=== PATIENT | male | born 1975 | race Caucasian/White ===

== ENCOUNTER → 2019-06-03 | Outpatient (CLI) | payer OTHER | LOC: M.MRI 05-24 08:56 | DX: S34.139A Unspecified injury to sacral spinal cord, initial encounter (principal); S34.105A Unspecified injury to L5 level of lumbar spinal cord, initial encounter; M47.817 Spondylosis without myelopathy or radiculopathy, lumbosacral region; M47.812 Spondylosis without myelopathy or radiculopathy, cervical region; M50.323 Other cervical disc degeneration at C6-C7 level; M48.02 Spinal stenosis, cervical region; M50.223 Other cervical disc displacement at C6-C7 level; V89.2XXA Person injured in unspecified motor-vehicle accident, traffic, initial encounter; Y93.89 Activity, other specified; Y92.89 Other specified places as the place of occurrence of the external cause; Y99.8 Other external cause status ==

== ENCOUNTER → 2019-06-10 | Outpatient (CLI) | payer OTHER ==
[~2019-06-10] MED LIST: AMITRIPTYLINE H10 M1 PO; IBUPROFEN 800800 M1 PO; LISINOPRIL10 MG PO; MEDROLDOSEPACK PO; MOBIC15 MG PO; NORCO 5-325 TA1 EAC1 PO; NORFLEX100 MG PO
== END ==
LOC: M.MRI 14:15
DX: G93.0 Cerebral cysts (principal)

== ENCOUNTER → 2019-06-16 | Outpatient (CLI) | payer OTHER ==
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
== END ==
LOC: M.PC 05:21
DX: M54.16 Radiculopathy, lumbar region (principal); M47.812 Spondylosis without myelopathy or radiculopathy, cervical region; I10 Essential (primary) hypertension; M79.18 Myalgia, other site; M48.02 Spinal stenosis, cervical region; Z79.899 Other long term (current) drug therapy

== ENCOUNTER → 2019-06-23 | Outpatient (CLI) | payer OTHER ==
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
== END | disposition home or self-care (01) ==
LOC: M.PC 05:12
DX: M51.37 Other intervertebral disc degeneration, lumbosacral region (principal); G89.29 Other chronic pain; M79.18 Myalgia, other site; M50.223 Other cervical disc displacement at C6-C7 level; M47.892 Other spondylosis, cervical region; M48.02 Spinal stenosis, cervical region; I10 Essential (primary) hypertension; Z88.8 Allergy status to other drugs, medicaments and biological substances; Z79.899 Other long term (current) drug therapy; Z79.891 Long term (current) use of opiate analgesic; Z98.890 Other specified postprocedural states

== ENCOUNTER → 2019-07-21 | Outpatient (CLI) | payer OTHER ==
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
== END | disposition home or self-care (01) ==
LOC: M.PC 05:31
DX: M47.22 Other spondylosis with radiculopathy, cervical region (principal); M79.18 Myalgia, other site; M48.02 Spinal stenosis, cervical region; M99.71 Connective tissue and disc stenosis of intervertebral foramina of cervical region; I10 Essential (primary) hypertension; Z79.899 Other long term (current) drug therapy; Z88.8 Allergy status to other drugs, medicaments and biological substances

== ENCOUNTER 2019-07-26 15:58 | Inpatient (IN) | payer OTHER ==
[~2019-07-26] VITALS: Ht 182.9 cm; Wt 127.0 kg
[2019-07-26 16:00] VITALS: BP 146/101
[2019-07-26 16:35] LABS: HEMOGLOBIN 15.5 gm/dL (14.0-18.0); MCHC 34.4 g/dL (28.0-37.0); MCV 78.4 fL (80.0-100.0); MPV 8.2 fl. (7.2-11.1); NUCLEATED RBCS 0 /100WBC; PLATELET COUNT* 228 thou/uL (150-400); RBC 5.74 mil/uL (4.50-6.00); RDW-CV 15.4 % (10.5-14.5); WBC 14.4 thou/uL (4.0-11.0)
[2019-07-26 16:41] LABS: CALCIUM 9.2 mg/dL (8.5-10.1); CREATININE 1.3 mg/dL (0.6-1.3); POTASSIUM 3.7 mmol/L (3.5-5.1)
[2019-07-26 16:42] LABS: URINE BILIRUBIN NEGATIVE (Negative); URINE BLOOD NEGATIVE (Negative); URINE CLARITY CLEAR; URINE COLOR YELLOW; URINE GLUCOSE-RANDOM NEGATIVE (Negative); URINE KETONES NEGATIVE (Negative); URINE LEUKOCYTES-REFLEX NEGATIVE (Negative); URINE NITRITE-REFLEX NEGATIVE (Negative); URINE PROTEIN TRACE (Negative); URINE SPECIFIC GRAVITY 1.025 (1.005-1.030); URINE UROBILINOGEN 0.2 E.U./dl (0.2-1.0)
[2019-07-26 16:46] LABS: ALBUMIN 3.7 g/dL (3.4-5.0); TOTAL BILIRUBIN 1.3 mg/dL (<0.1-1.0); TOTAL PROTEIN 7.4 g/dL (6.4-8.2)
[2019-07-26 17:00] LABS: INFLUENZA A ANTIGEN Negative (Negative); INFLUENZA B ANTIGEN Negative (Negative)
[2019-07-26 17:18] LABS: ABSOLUTE LYMPHOCYTES 0.4 thou/uL (0.8-5.3); ABSOLUTE MONOCYTES 1.7 thou/uL (0.0-1.2); ABSOLUTE NEUTROPHILS 12.2 thou/uL (1.6-8.1); PLATELET ESTIMATE ADEQUATE
[2019-07-26 19:19] VITALS: BP 115/80
[2019-07-27 05:02] LABS: HEMATOCRIT 40.8 % (42.0-52.0); HEMOGLOBIN 13.7 gm/dL (14.0-18.0); MCH 26.9 pg (26.0-34.0); MCHC 33.5 g/dL (28.0-37.0); MCV 80.3 fL (80.0-100.0); MPV 8.1 fl. (7.2-11.1); RBC 5.08 mil/uL (4.50-6.00); RDW-CV 15.3 % (10.5-14.5); WBC 12.5 thou/uL (4.0-11.0)
[2019-07-27 05:13] LABS: CALCIUM 8.3 mg/dL (8.5-10.1); CREATININE 1.3 mg/dL (0.6-1.3)
[2019-07-27 05:31] LABS: POTASSIUM 4.7 mmol/L (3.5-5.1)
[2019-07-27 07:47] VITALS: BP 133/84
[2019-07-27 09:25] VITALS: BP 133/84
--- NOTE | 2019-07-28 13:07 | PATH ---
[facility] [address] [place] [address] PATHOLOGY RPT PROCEDURE Name: HILARIO MOSQUERA Room: [address] [place] M.R.#: [id number] Admission: 07/26/19 Date of : 71 Discharge: 07/27/19 Report #: [id number] Path Case #: [id number] [facility] Accession Number: [id number] . 01 Material submitted: . appendix - APPENDIX . 01 Clinical history: . Acute appendicitis . 02 Diagnosis: Appendix: - Acute gangrenous appendicitis, periappendicitis and serositis. . (EDUIN:mml; 07/28/2019) QL 07/28/2019 1213 Local . 02 Electronically signed: . Danny Conner MD, Pathologist NPI- [id number] . 01 Gross description: . The specimen is received in formalin, labeled "Hilario Mosquera, appendix" and consists of a curved appendix measuring 10.6 in length and up to 1.2 in diameter with mesoappendix measuring 1.6 thick. The serosa is pink-de la cruz with extensive adhesions and focal hemorrhage at the proximal aspect. The margin is closed with a line of lorri and inked black. Sectioning reveals a hemorrhagic dilated lumen containing red brown material. Physician Gynecologist sections are submitted in A1-A3. (SDY; 07/27/2019) SYU/SYU 07/27/2019 [facility] . 02 Pathologist provided ICD-10: K35.80 . 02 CPT . 725119 Specimen Comment: A courtesy copy of this report has been sent to Specimen Comment: [phone], . Specimen Comment: Report sent to / DR EVANGELISTA Performed at: 01 [facility] [address] [facility] [address], [place], [place] [id number] MD Waldo Mcginnis MD Phone: [phone] Performed at: [address] [address] [address] [place] [id number] MD Danny Conner MD Phone: [phone]
[2019-08-18] MEDS ORDERED: NORCO 5-325 TA1 EAC1 PO (12:19)
[2019-08-18] MEDS ORDERED: MOBIC15 MG PO (12:19)
[2019-08-18] MEDS ORDERED: AMITRIPTYLINE H10 M1 PO ×2 (12:20→12:22)
[2019-08-26] MEDS ORDERED: AMITRIPTYLINE H10 M1 PO (11:51)
--- NOTE | 2019-08-30 13:34 | OP ---
[address] [address] OPERATIVE REPORT Name: HILARIO PRAKASH Room: [address] [place] .R.#: [id number] Admission: 07/26/19 Attend Phys: Mohan Queen DO Discharge: 07/27/19 Date of : 71 Report #: [id number] THIS REPORT FOR: //name// CC: Mohan Queen [facility] DICTATED BY: Sonny Cervantes DO DATE OF SERVICE: 07/26/2019 PREOPERATIVE DIAGNOSIS: Acute appendicitis. POSTOPERATIVE DIAGNOSIS: Acute appendicitis. SURGERY PERFORMED: Laparoscopic appendectomy. SURGEON: Mohan Queen DO PRINT PRODUCTION COORDINATOR: Sonny Cervantes DO, PGY-3. ANESTHESIA: General and local. ESTIMATED BLOOD LOSS: 20 mL. SPECIMEN REMOVED: Appendix. COMPLICATIONS: None. IMPLANTS: None. HISTORY OF PRESENT ILLNESS: The patient is a 44-year-old male presented to the Emergency Room with acute onset right lower quadrant pain, diagnosed with acute appendicitis. Discussed the need for laparoscopic appendectomy. Risks, benefits and alternatives were discussed at length and he agreed to proceed with surgery. DESCRIPTION OF PROCEDURE: Once consent was obtained, the patient was taken to the operating room and placed in the supine position. SCDs applied to bilateral lower extremities, safety belt placed across the patient's waist, antibiotics were given for surgical prophylaxis. General anesthesia was administered without any complication. The patient was then prepped and draped in the standard sterile fashion. Timeout was performed to confirm the patient and procedure, 11-blade scalpel was used to make an incision just above the umbilicus in a vertical fashion. Electrocautery was used for hemostasis and to dissect down to the level of fascia. Once the fascia was encountered, it was [facility] [address] [place] [address] OPERATIVE REPORT Name: HILARIO PRAKASH Room: [address] [place] [facility].#: [id number] Admission: 07/26/19 Attend Phys: Mohan Queen DO Discharge: 07/27/19 Date of : 71 Report #: [id number] scored with electrocautery, grasped between 2 Kochers and elevated. Hemostat was used to bluntly enter the peritoneum. Two stitches of 0 Vicryl placed on either side of the fascia. A 5 mm Jessica trocar was inserted in the abdomen. Insufflation was initiated. Camera was inserted and intraabdominal contents were inspected. There did appear to be localized peritonitis in the right lower quadrant. The cecum was identified; however, the appendix could not be easily seen. The patient was placed in Trendelenburg and rotated towards the left. A second 5 mm trocar was placed just above the suprapubic bone. Laparoscopic [place] was used to mobilize this small bowel laterally and out of the way of the operative field. The appendix could barely be visible from this point. A second 12-mm trocar was placed in the left lower quadrant of the abdomen. Two laparoscopic Babcocks were used to mobilize the colon. The appendix was identified. It was very inflamed and dilated, very large, indicating acute appendicitis with localized peritonitis. There was some serous fluid around this area. No evidence of pus or perforation. The appendix itself was mobilized off the abdominal wall with blunt dissection. Once the appendix was completely mobilized, it was grasped at the base. Harmonic scalpel was used to create a window at the base of the appendix. A 45 purple load staple was fired across the base of the appendix without any incidents. Once the base of the appendix was stapled, Harmonic scalpel was used to go across the mesoappendix. All bleeding was controlled with the Harmonic scalpel. The appendix was placed in laparoscopic EndoCatch bag. Staple lines were inspected carefully. There was no evidence of bleeding from the staple line. The mesoappendix did have a little bit of bleeding. This was cauterized with the Harmonic scalpel. Once the right lower quadrant was irrigated copiously, all fluid was suctioned out. The patient was leveled out. Again, the staple line and the right lower quadrant were inspected. There was no evidence of bleeding. Insufflation was let down. All trocars were removed under direct visualization. The Tito-Cipriano was used to close the left lower quadrant 12-mm trocar. A 3-0 Vicryl was used to close the supraumbilical fascia, 4-0 Monocryl was used to close all other incisions. The appendix was removed from the abdomen. It was again very inflamed, very dilated, indicating acute appendicitis. This patient was awoken from general anesthesia and transferred to PACU in stable condition. All counts were correct at the end of the case. <ELECTRONICALLY SIGNED> By: Mohan Queen DO 08/30/19 1334 2106 2144Alaura Queen DO /nt
== END 2019-07-27 11:15 | disposition home or self-care (01) | DRG 342 ==
LOC: M.ERS 15:58 → M.TBA-ER 18:24 → M.3W 18:24
PROVIDERS: Nurse Practitioner Family; ADMIT Surgery
PROC: 0DTJ4ZZ Resection of Appendix, Percutaneous Endoscopic Approach (ICD-10-PCS; principal; 2019-07-26)
DX: K35.30 Acute appendicitis with localized peritonitis, without perforation or gangrene (principal); R65.10 Systemic inflammatory response syndrome (SIRS) of non-infectious origin without acute organ dysfunction; E78.5 Hyperlipidemia, unspecified; I10 Essential (primary) hypertension; E66.9 Obesity, unspecified; Z68.38 Body mass index [BMI] 38.0-38.9, adult; Z88.8 Allergy status to other drugs, medicaments and biological substances

== ENCOUNTER → 2019-08-18 | Outpatient (CLI) | payer OTHER ==
--- NOTE | 2019-08-29 13:25 | PAINCON ---
[address] [address] PAIN MANAGEMENT CONSULTATION Name: HILARIO PRAKASH [facility] [id number] Admission: 08/18/19 Attend Phys: Robyn Ko MD Discharge: Date of : 71 Report #: [id number] THIS REPORT FOR: //name// CC: Elena Duncan DATE OF SERVICE: 08/18/2019 CHIEF COMPLAINT: Low back and neck pain. HISTORY: The patient is a 44-year-old gentleman who has been seen in the pain clinic because of lumbar radicular pain. He is having pain and discomfort in the lower portion of his back. He has pain in the neck. Pain in the lower portion of the back is most problematic at this point. He has had abdominal pain. He underwent appendectomy about 3 weeks ago. Overall, things are going well. He has seen and followed up with his surgeon. He has returned today with hopes of undergoing an epidural steroid injection to help quell and decrease the amount of pain and discomfort he is experiencing in his low back area and down into his legs. Epidural injections in the past have provided him about 90% improvement in his pain. ALLERGIES: STATINS. CURRENT MEDICATIONS: Ibuprofen t.i.d., hydrocodone 5/325 one p.o. q. 4-6 hours p.r.n., Norflex 100 mg 2-3 tablets daily. PAIN CLINIC ASSESSMENT AND PQRS: 1. History of osteoarthritis. The patient is not being treated for osteoarthritis or rheumatoid arthritis. 2. Height 6 feet 0 inch, weight 279 pounds, BMI is 37.8. 3. Vital signs: Blood pressure 134/86, heart rate 76, respiratory rate 16, room air saturation is 97%. 4. Temperature 98.4. 5. Pain intensity /10. 6. Fall history: The patient has not fallen in the last 3 months. 7. Blood thinner: The patient is not on a blood thinning medication. 8. Hypertension: The patient is being treated for hypertension. 9. Opioids greater than 6 weeks. 10. Risk assessment tool, low for opioid use. 11. Functional assessment tool. 12. Recreational drug use: The patient denies. 13. Tobacco: The patient denies use of tobacco. 14. Alcohol: The patient rarely uses alcoholic beverages. PHYSICAL EXAMINATION: [place] [address] PAIN MANAGEMENT CONSULTATION Name: HILARIO PRAKASH Room: [facility]#: [id number] Admission: 08/18/19 Attend Phys: Robyn Ko MD Discharge: Date of : 71 Report #: [id number] GENERAL: The patient is a well-developed, well-nourished white male. Appears his stated age. He is alert and oriented x 3. His affect is appropriate. Speech is fluent. HEENT: Normocephalic, atraumatic. Extraocular eye muscles intact. Sclerae nonicteric. Mucous membranes are moist. NECK: Without adenopathy or JVD. LUNGS: Clear to auscultation. ABDOMEN: Nontender. Bowel sounds present. EXTREMITIES: Upper extremity muscle strength judged to be 5/5 for the major muscle groups in the upper extremity. Major muscle groups in the lower extremity is judged to be 5/5 with pain radiating down into the right lumbar area. IMPRESSION: 1. Lumbar radiculopathy involving the low back area with pain that radiates down the L5-S1 dermatomal distribution with numbness, tingling and sensory changes. 2. Right L5-S1 dermatomal distribution with MRI of an annular tear in the posterior aspects of the L4-L5 disk. 3. MRI of the head finding of a 9.9 x 7.5 x 4.9, CSF signal in the posterior fossa. 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 4. Generalized myofascial pain. 5. Cervical spondylosis present at C6-C7, moderate central spinal stenosis and left neural foraminal narrowing secondary to eccentric disk bulge. 6. Cyst level is 8 mm consistent with moderate central spinal stenosis. 7. Hypertension. RECOMMENDATIONS: We discussed treatment options with the patient. Risks and benefits of an epidural steroid injection were discussed. Possible complications of the procedure, which could include infection, worsening of pain, no improvement in pain, headache, bleeding were discussed and the patient elects to proceed. PROCEDURE NOTE: The patient was taken to the procedure area. He was then assisted in getting on the examination table. His back was sterilely prepped with a Betadine solution at the L5-S1 area. A 0.25% bupivacaine was infiltrated in the area using a 25-gauge needle. The area was then evaluated and found to be anesthetized. A 17-gauge Tuohy with loss of resistance technique was used to gain access to the epidural space. There was no CSF, heme or paresthesia. Total of 80 mg Depo-Medrol, 40 mg of triamcinolone and 2 mL of 0.25% bupivacaine was injected. The patient tolerated the procedure well. There were no complications. He remained in the pain clinic for an appropriate amount of time. A script has been rewritten for hydrocodone. He will also continue with amitriptyline and meloxicam 15 mg. He will call us [place] [address] PAIN MANAGEMENT CONSULTATION Name: HILARIO PRAKASH Room: [facility]#: [id number] Admission: 08/18/19 Attend Phys: Robyn Ko MD Discharge: Date of : 71 Report #: [id number] We would like to thank you for letting us participate in his care. We hope he continues to improve. <ELECTRONICALLY SIGNED> By: Robyn Ko MD 08/29/19 1325 2224 2255N. Yadiel Ko MD /nt
== END | disposition home or self-care (01) ==
LOC: M.PC 04:59
DX: M54.5 Low back pain (principal); M54.16 Radiculopathy, lumbar region; M79.18 Myalgia, other site; M48.02 Spinal stenosis, cervical region; M47.892 Other spondylosis, cervical region; I10 Essential (primary) hypertension; Z98.890 Other specified postprocedural states; Z88.8 Allergy status to other drugs, medicaments and biological substances; Z79.891 Long term (current) use of opiate analgesic; Z79.899 Other long term (current) drug therapy

== ENCOUNTER → 2019-10-27 | Outpatient (CLI) | payer OTHER ==
--- NOTE | ~2019-10-27 | PAINCON ---
[address] [address] PAIN MANAGEMENT CONSULTATION Name: HILARIO PRAKASH Room: [facility]#: [id number] Admission: 10/27/19 Attend Phys: Robyn Ko MD Discharge: Date of : 71 Report #: [id number] THIS REPORT FOR: //name// CC: Elena Duncan DATE OF SERVICE: 10/27/2019 PRIMARY PHYSICIAN: Elena Meyer DO CHIEF COMPLAINT: The upper back is better. Having some upper neck pain. HISTORY: The patient is a 44-year-old gentleman who has been seen in the pain clinic because of lumbar radiculopathy. He has undergone epidural steroid injections and found that they have been beneficial. He has noticed some increased pain and discomfort around Farzana time. He notes that his pain did increase. He did have some increased pain in the buttock area. Today, he feels that things are going reasonably well and does not feel that an injection is needed. He would like to continue with his medications. He finds that these are beneficial. He rates his pain as a 3/10. Notes some decreased range of motion in his neck. Lumbar extension, left and right bending, left and right rotation caused some slight increase in the neck area. There is no pain radiating down into his hands or arms. There is no significant perception of weakness. Notes that his medications of hydrocodone are helpful. ALLERGIES: STATINS. CURRENT MEDICATIONS: Ibuprofen t.i.d., hydrocodone 5/325 one p.o. q.4-6 hours p.r.n., Norflex 100 mg 2 to 3 tablets daily. PAIN CLINIC ASSESSMENT AND PQRS: 1. History of osteoarthritis. The patient is not being treated for osteoarthritis or rheumatoid arthritis. 2. Height 6 feet 0 inch, weight 284 pounds, BMI is 38.7. 3. Vital Signs: Blood pressure 114/60, heart rate 95, respiratory rate 16, room air saturation 96%, temperature 97.2. 4. Pain intensity 12/26. 5. Fall history: The patient has not fallen in the last 3 months. 6. Blood thinner. The patient is not on a blood thinning medication. 7. Hypertension: The patient is being treated for hypertension. 8. Opioids greater than 6 weeks. The patient received medication from one source, the pain clinic. 9. Functional assessment tool. 10. Recreational drug use: The patient denies. 11. Tobacco: The patient [place] [address] PAIN MANAGEMENT CONSULTATION Name: HILARIO PRAKASH Room: [facility]#: [id number] Admission: 10/27/19 Attend Phys: Robyn Ko MD Discharge: Date of : 71 Report #: [id number] 12. Alcohol: The patient rarely drinks alcoholic beverages. PHYSICAL EXAMINATION: GENERAL: The patient is a well-developed, well-nourished white male. Appears his stated age. He is alert and oriented x 3. His affect is appropriate. Speech is fluent. HEENT: Normocephalic, atraumatic. Extraocular eye muscles intact. Sclerae nonicteric. Mucous membranes are moist. NECK: Without adenopathy or JVD. LUNGS: Clear to auscultation. ABDOMEN: Nontender. Bowel sounds present. EXTREMITIES: Upper extremity muscle strength judged to be 5/5 for the major muscle groups in the upper extremity. The patient's muscle strength in the lower extremities judged to be 5-/5 for the major muscle groups in the lower extremity with pain in the right lumbar area. IMPRESSION: 1. Lumbar radiculopathy involving the low back area with pain that radiates down into the L5-S1 dermatomal distribution in the past with numbness and tingling as well as sensory changes. 2. Right low back pain with radicular pain with activity and walking. 3. MRI of the head has a finding of a 9.9 x 7.5 x 4.9 CSF signal in the posterior fossa. 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 4. Cervical spondylosis present at C6-C7. Moderate central spinal stenosis and left neural foraminal narrowing secondary to eccentric disk bulge. 5. Cyst level is 8 mm consistent with moderate central spinal stenosis. 6. Hypertension. RECOMMENDATIONS: We discussed treatment options with the patient. At this juncture, he is having some stiffness in his neck. We would recommend that he slowly increase the range of motion in his neck as he is able to tolerate it. Hopefully, this will help to decrease some of the pain and discomfort. He denies any pain radiating down into his arms. Denies any weakness. He is not having very much neck pain, but does note some decrease in range of motion. The patient is aware that opioid medications can be helpful. They become less effective over time secondary to development of tolerance. We will continue with the patient's current medical regimen of amitriptyline 10 mg at bedtime. He will also continue with the nonsteroidal anti-inflammatory medication, Mobic. He will stop it if he notes some GI pain or complaints. The patient will continue with the hydrocodone 5/325 one p.o. q.4 hours p.r.n., total of 75 tablets have been prescribed. The patient will call us if he has any concerns. Possibility of an epidural steroid injection is still an [place] [address] PAIN MANAGEMENT CONSULTATION Name: HILARIO PRAKASH Room: [facility]#: [id number] Admission: 10/27/19 Attend Phys: Robyn Ko MD Discharge: Date of : 71 Report #: [id number] We would like to thank you for letting us participate in his care. We hope he continues to improve. By: 1305 1423N. Yadiel Ko MD /nt
== END ==
LOC: M.PC 10:11
DX: M47.812 Spondylosis without myelopathy or radiculopathy, cervical region (principal); M54.16 Radiculopathy, lumbar region; I10 Essential (primary) hypertension; R93.0 Abnormal findings on diagnostic imaging of skull and head, not elsewhere classified; M48.02 Spinal stenosis, cervical region; Z79.891 Long term (current) use of opiate analgesic; Z79.899 Other long term (current) drug therapy

== ENCOUNTER → 2019-12-23 | Outpatient (CLI) | payer OTHER ==
--- NOTE | ~2019-12-23 | TST ---
[place] [address] TREADMILL STRESS TEST Name: OLINDAHILARIO Audi Room: [facility]#: [id number] Admission: 12/23/19 Attend Phys: Tianna Crowley Discharge: Date of : 71 Date of Service: 12/23/19 1730 Report #: [id number] THIS REPORT FOR: cc: Elena Meyer Maggie M. DO Liston, Michael J. MD [facility] ~ CC: Elena Rubio DATE OF SERVICE: 12/23/2019 PROCEDURE: Standard Dick protocol exercise stress test. REFERRING PHYSICIAN: Elena Meyer DO INDICATION: Dyspnea. CARDIAC HISTORY: None. RISK FACTORS: Age greater than 45, hyperlipidemia, hypertension, prediabetes and family history of coronary artery disease. CARDIAC MEDICATIONS: Lisinopril. The patient exercised per standard Dick protocol for a total of 9 minutes and 8 seconds. The patient achieved 90% of the age predicted maximum heart rate and an energy expenditure equivalent to 10.37 METS. The patient attained target heart rate. Exercise was stopped due to attainment of target heart rate and unsteady gait due to some ankle injuries. The resting heart rate was 97 beats per minute with a resting blood pressure of 134/70. At peak exercise, the heart rate was 156 beats per minute with a peak stress heart rate of 185/86 mmHg. Recovery heart rate was 105 beats per minute with a recovery blood pressure of 126/81 mmHg. The baseline 12-lead EKG shows sinus rhythm without significant ST segment or T-wave abnormality. EKGs obtained during and post-exercise shows sinus rhythm and sinus tachycardia with no significant ST segment or T-wave changes when compared to baseline. There were no stress-induced arrhythmias. IMPRESSION: 1. Clinical response: Nonischemic. 2. EKG response: [place] [address] TREADMILL STRESS TEST Name: HILARIO PRAKASH Room: [facility]#: [id number] Admission: 12/23/19 Attend Phys: Tianna Crowley Discharge: Date of : 71 Date of Service: 12/23/191729 Report #: [id number] CONCLUSION: This standard Dick protocol exercise stress test shows no EKG or clinical evidence to suggest stress-induced ischemia. This is a normal study. By: 1730 Olivier Jacobs MD, FACC /nt
== END ==
LOC: M.CRD 13:48
DX: R06.02 Shortness of breath (principal); R06.00 Dyspnea, unspecified

== ENCOUNTER → 2019-12-29 | Outpatient (CLI) | payer OTHER ==
--- NOTE | ~2019-12-29 | PAINCON ---
[address] [address] PAIN MANAGEMENT CONSULTATION Name: HILARIO PRAKASH Room: [facility] Kelsie#: [id number] Admission: 12/29/19 Attend Phys: Robyn Ko MD Discharge: Date of : 71 Report #: [id number] THIS REPORT FOR: //name// cc: Elena Meyer Maggie M. DO ~ THIS REPORT FOR: //name// CC: Elena Duncan DATE OF SERVICE: 12/29/2019 CHIEF COMPLAINT: Pain has started again. HISTORY OF PRESENT ILLNESS: The patient is a 44-year-old gentleman, who has been followed in the Pain Clinic because of lumbar radiculopathy. He has undergone epidural steroid injections. These have been beneficial. He returns today indicating that he continues to have some pain and discomfort in his lower back; rates his pain as 3/10. There is a burning sensation down into his right leg; also has some neck pain and pain radiating down to his left and right leg. He has not undergone physical therapy. He would like to consider physical therapy at this juncture. He notes there is some stiffness in his neck on both sides. When he turns his head left or right or flexes and extends his neck, he notes some increased pain and discomfort. He rates his pain as 3/10 today; feels that the meloxicam and hydrocodone medications are helpful. He also feels that the amitriptyline medication has been helpful in the past and would like to resume its use. ALLERGIES: STATINS. CURRENT MEDICATIONS: Ibuprofen t.i.d., hydrocodone 5/325 one p.o. every 4-6 hours, and Norflex 100 mg 2-3 tablets daily. PAIN CLINIC ASSESSMENT/PQRS: 1. The patient has a history of osteoarthritis. He is not being treated for osteoarthritis or rheumatoid arthritis. 2. Height 6 feet 0 inch, weight 280 pounds, body mass index is 38. 3. Vital signs: Blood pressure 122/85, heart rate 100, respiratory rate 16, room air saturation 97%, and temperature 98.3. 4. Pain intensity 10. 5. Fall history: The patient has not fallen in the last 3 months. 6. Blood thinner. The patient is not on a blood thinning medication. 7. Hypertension. The patient is being treated for hypertension. 8. Opioids greater than 6 weeks. The patient received medication from one source, [place] [address] PAIN MANAGEMENT CONSULTATION Name: HILARIO PRAKASH Room: [facility]#: [id number] Admission: 12/29/19 Attend Phys: Robyn Ko MD Discharge: Date of : 71 Report #: [id number] 9. Risk assessment tool: Low for opioids. 10. Functional assessment tool: Reviewed. 11. Recreational drug use: The patient denies. 12. Tobacco: The patient denies. 13. Alcohol: The patient denies. PHYSICAL EXAMINATION: GENERAL: The patient is a well-developed, well-nourished white male; appears his stated age. He is alert and oriented x3. His affect is appropriate. Speech is fluent. HEENT: Normocephalic, atraumatic. Extraocular eye muscles are intact. Sclerae are anicteric. Mucous membranes are moist. NECK: Without adenopathy or JVD. LUNGS: Clear to auscultation. ABDOMEN: Nontender. Bowel sounds present. EXTREMITIES: Upper extremity muscle strength judged to be 5/5 for the major muscle groups in the upper extremity. The patient has pain and discomfort in lower portion of his back in the L5-S1 dermatomal distribution with pain radiating down into the right low back area in the L5-S1 dermatomal distribution. IMPRESSION: 1. Lumbar radiculopathy involving the low back area that radiates down to the L5-S1 dermatomal distribution with numbness, tingling, and sensory changes. 2. Right low back pain, which is exacerbated with activity and walking as well as at work. 3. MRI: The patient has a finding of a 9.9 x 7.5 x 4.9 cm CSF signal in the posterior fossa. 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 4. Cervical spondylosis at C6-C7; moderate central spinal stenosis and left neural foraminal narrowing secondary to eccentric disk bulge. 5. Cyst consistent with causing 8 mm narrowing consistent with moderate central spinal stenosis. 6. Hypertension. RECOMMENDATIONS: We discussed treatment options with the patient. At this juncture, the patient has noted some recurrence of pain and discomfort. It is radiating down into the right leg. He has undergone epidural steroid injections and they have been beneficial. He still has pain and also notes some stiffness in his neck. He has not undergone physical therapy. I think that physical therapy could be helpful. The risks and benefits of an epidural steroid injection were again discussed. They include but are not limited to infection, worsening of pain, no improvement in pain, and the patient elects to proceed. PROCEDURE NOTE: The patient was taken to the procedure area. He was then [address] [place] [address] PAIN MANAGEMENT CONSULTATION Name: HILARIO PRAKASH Room: [facility]#: [id number] Admission: 12/29/19 Attend Phys: Robyn Ko MD Discharge: Date of : 71 Report #: [id number] assisted in getting on the examination table. His back was sterilely prepped. Bupivacaine 0.25% was infiltrated at the L5-S1 area. A 17-gauge Tuohy with loss of resistance technique was used to gain access to the epidural space. There was no CSF, heme, or paresthesia. A total of 80 mg Depo-Medrol, 40 mg triamcinolone, and 2 mL of 0.25% bupivacaine were injected. The patient tolerated the procedure well. He remained in the Pain Clinic for an appropriate amount of time. We would like to thank you for letting us participate in his care. We hope he continues to improve. By: [id number]. Yadiel Ko MD /nt
== END | disposition home or self-care (01) ==
LOC: M.PC 04:17
DX: M54.16 Radiculopathy, lumbar region (principal); G89.29 Other chronic pain; M54.5 Low back pain; M47.892 Other spondylosis, cervical region; M48.02 Spinal stenosis, cervical region; I10 Essential (primary) hypertension; Z98.890 Other specified postprocedural states; Z79.899 Other long term (current) drug therapy; Z88.8 Allergy status to other drugs, medicaments and biological substances

== ENCOUNTER → 2020-01-26 | Outpatient (CLI) | payer OTHER ==
[~2020-01-26] MED LIST changes: +HYDROCODON-ACE1 EAC5 PO; +HYDROCODON-ACE1 EAC7 PO; +MELOXICAM15 MG PO; +ZANAFLEX4 M1 PO
--- NOTE | ~2020-01-26 | PAINCON ---
[address] [address] PAIN MANAGEMENT CONSULTATION Name: HILARIO PRAKASH [id number] Admission: 01/26/20 Attend Phys: Robyn Ko MD Discharge: Date of : 71 Report #: [id number] THIS REPORT FOR: //name// cc: Elena Meyer Maggie M. DO ~ THIS REPORT FOR: //name// CC: Elena Ko DATE OF SERVICE: 01/26/2020 CHIEF COMPLAINT: Pain in the low back and neck. HISTORY: The patient is a 44-year-old gentleman who has been seen in the pain clinic because of lumbar radiculopathy. He has undergone epidural steroid injections in the lumbar area. He has noticed 100% improvement from the pain for the last 2 weeks. He has been provided a script for physical therapy. Due to the coronavirus plague he has not been able to go to physical therapy. He has not had any complication from the last injection. The regional pain doctors have elected to only perform injections with certain emergent criteria. He feels that the [place] medication is helpful. He also feels that the meloxicam has been beneficial. He would like to have these medications continued. ALLERGIES: STATINS. CURRENT MEDICATIONS: Ibuprofen t.i.d., hydrocodone 5/325 one p.o. q. 4-6 hours, takes about 2-1/2 tablets daily, meloxicam 15 mg daily, Elavil 10 mg 2 tablets at bedtime. PAIN CLINIC ASSESSMENT AND PQRS: 1. The patient does have some osteoarthritic changes in the low back area. He is not being treated for rheumatoid arthritis. 2. Height 6 feet 0, weight 268 pounds, BMI is 36.5. 3. Vital signs: Blood pressure 115/69, heart rate 97, respiratory rate 16, room air saturation 97%. 4. Temperature 97.8. 5. Pain intensity 2-3/10. 6. Fall history: The patient has not fallen since we saw him last. 7. Blood thinner. The patient is not on a blood thinning medication. 8. Hypertension. The patient is being treated for hypertension. 9. Opioids greater than 6 weeks. The patient received medication from one source, the pain clinic. 10. Risk assessment tool, low for opioid use. 11. Functional assessment tool reviewed. 12. Recreational drug use: [place] [address] PAIN MANAGEMENT CONSULTATION Name: OLINDAHILARIO MARTÍNEZ Audi Room: [facility]#: [id number] Admission: 01/26/20 Attend Phys: Robyn Ko MD Discharge: Date of : 71 Report #: [id number] 13. Tobacco: The patient denies. 14. Alcohol. The patient denies frequent use of alcoholic beverages. PHYSICAL EXAMINATION: GENERAL: The patient is a well-developed, well-nourished white male. Appears his stated age. He is alert and oriented x 3. His affect is appropriate. Speech is fluent. HEENT: Normocephalic, atraumatic. Extraocular eye muscles intact. Sclerae nonicteric. Mucous membranes are moist. NECK: Without adenopathy or JVD. LUNGS: Generally clear to auscultation. ABDOMEN: Nontender. EXTREMITIES: Upper extremity muscle strength judged to be 5/5 for the major muscle groups in the upper extremity. The patient has pain and discomfort in the lower portion of his back in the L5-S1 dermatomal distribution. IMPRESSION: 1. History of lumbar radiculopathy involving the low back area with pain radiating down the L5-S1 dermatomal distribution with numbness and tingling. 2. MRI of the back with findings of 9.9 x 7.5 x 9.4 cm CSF signal in the posterior fossa. These characteristics are most consistent with a large posterior fossa subarachnoid cyst associated with findings consistent with a murali cisterna. 3. Cervical spondylosis at C6-C7, moderate central canal stenosis and left neural foraminal narrowing secondary to eccentric disk bulge. 4. Cyst consistent with narrowing to 8 mm with development of moderate spinal stenosis. 5. Hypertension. RECOMMENDATIONS: We discussed treatment options with the patient. At this juncture, we will continue with his medications. The patient has been provided a script for [place] 5 mg one p.o. q. 4-6 hours p.r.n. He will also continue with meloxicam 15 mg 1 p.o. daily. He will call us if he has any concerns. Once the coronavirus situation has improved the patient will consider physical therapy. We will also consider the possibility of another lumbar epidural steroid injection. We would like to thank you for letting us participate in his care. We hope he continues to improve. By: [id number]. Yadiel Ko MD /trini
== END ==
LOC: M.PC 04:58
DX: M54.5 Low back pain (principal); M54.16 Radiculopathy, lumbar region; M47.812 Spondylosis without myelopathy or radiculopathy, cervical region

== ENCOUNTER → 2020-02-23 | Outpatient (CLI) | payer OTHER ==
[~2020-02-23] MED LIST changes: +NORTRIPTYLINE H10 M1 PO
--- NOTE | 2020-03-06 08:21 | PAINCON ---
[address] [address] PAIN MANAGEMENT CONSULTATION Name: HILARIO PRAKASH Room: [facility] EmLinda#: [id number] Admission: 02/23/20 Attend Phys: Robyn Ko MD Discharge: Date of : 71 Report #: [id number] THIS REPORT FOR: //name// cc: Elena Meyer Maggie M. DO ~ THIS REPORT FOR: //name// CC: Elena Ko DATE OF SERVICE: 02/23/2020 CHIEF COMPLAINT: "Increased pain in the low back with it, going down into my right leg and thigh." HISTORY: The patient is a 44-year-old gentleman who has been followed in the pain clinic because of pain and discomfort associated with lumbar radiculopathy. Rates his pain as a 3/10 today. He has pain that is radiating down his right leg into the knee. There is a burning sensation on the top side of his thigh. He has had epidural steroid injections in the past. At this juncture, he would like to "hold off" at this time. He is having frequent muscle spasms. He feels that his pain is about 50% improved with his current medical regimen. He feels that the hydrocodone is helpful. He has been taken off the amitriptyline. He has been scheduled to see a brain specialist. As you may recall, he has a cyst in the posterior fossa area. ALLERGIES: STATINS. CURRENT MEDICATIONS: Ibuprofen t.i.d., hydrocodone 5/325 1 p.o. q.4-6 hours, meloxicam 15 mg 1 p.o. daily. The patient has stopped taking the amitriptyline at the advice of his "brain specialist. PAIN CLINIC ASSESSMENT AND PQRS: 1. The patient has some osteoarthritic changes in his back. He is not being treated for rheumatoid arthritis. 2. Height 6 feet 0, weight 273 pounds, BMI is 36. 3. Vital signs: Blood pressure 92/77, heart rate 107, respiratory rate 16, room air saturation 98%, temperature 97.4. 4. Pain intensity, 12/26. 5. Fall history. The patient has not fallen in the last 3 months. 6. Blood thinner. The patient is not on a blood thinning medication. 7. Hypertension. The patient is being treated for hypertension. 8. Opioids greater than 6 weeks. The patient receives medication from the pain clinic. 9. Risk assessment tool, low for opioid use. 10. [place] [address] PAIN MANAGEMENT CONSULTATION Name: HILARIO PRAKASH Room: [facility]#: [id number] Admission: 02/23/20 Attend Phys: Robyn Ko MD Discharge: Date of : 71 Report #: [id number] 11. Recreational drug use. The patient denies. 12. Tobacco. The patient denies. 13. Alcohol. The patient denies frequent use of alcoholic beverages. PHYSICAL EXAMINATION: GENERAL: The patient is a well-developed, well-nourished, white male. Appears his stated age. He is alert and oriented x 3. His affect is appropriate. Speech is fluent. HEENT: Normocephalic, atraumatic. Extraocular eye muscles intact. Sclerae nonicteric. Mucous membranes are moist. NECK: Without adenopathy. LUNGS: Clear to auscultation. ABDOMEN: Nontender. EXTREMITIES: Upper extremity muscle strength judged to be 5/5 for the major muscle groups in the upper extremity. The patient has pain and discomfort that radiates down the L5-S1 dermatomal distribution. IMPRESSION: 1. History of lumbar radiculopathy involving the low back with pain radiating down the L5-S1 dermatomal distribution. 2. MRI of the back with findings of 9.9 x 7.5 x 9.4 cm CSF signal in the posterior fossa. The characteristics are most consistent with a large posterior fossa subarachnoid cyst associated with findings consistent with a murali cisterna. 3. Cervical spondylosis at C6-C7 with moderate central canal stenosis and left neural foraminal narrowing secondary to eccentric disk bulge. 4. Cyst consistent with narrowing to 8 mm and development of a moderate spinal stenosis. 5. Hypertension. RECOMMENDATIONS: We discussed treatment options with the patient. At this juncture, we will renew his hydrocodone medication. The patient will continue with the hydrocodone q.4-6 hours p.r.n. for pain. The patient will also continue with meloxicam 15 mg. The patient has been taken off the amitriptyline. He may try nortriptyline. A script for his medications have been provided. The patient will call us if he has any concerns. Should his pain return, we will consider the possibility of another epidural steroid injection. We would like to thank you for letting us participate in his care. <ELECTRONICALLY SIGNED> By: Robyn Ko MD 03/06/20 0821 [id number]. Yadiel Ko MD /[facility]
== END ==
LOC: M.PC 01:50
DX: M47.812 Spondylosis without myelopathy or radiculopathy, cervical region (principal); M48.02 Spinal stenosis, cervical region; M50.223 Other cervical disc displacement at C6-C7 level; I10 Essential (primary) hypertension; Z87.39 Personal history of other diseases of the musculoskeletal system and connective tissue; Z88.8 Allergy status to other drugs, medicaments and biological substances; Z79.899 Other long term (current) drug therapy

== ENCOUNTER → 2020-03-22 | Outpatient (CLI) | payer OTHER ==
--- NOTE | 2020-03-23 15:54 | PAINCON ---
[address] [address] PAIN MANAGEMENT CONSULTATION Name: OLINDAHILARIO Audi [facility] [id number] Admission: 03/22/20 Attend Phys: Robyn Ko MD Discharge: Date of : 71 Report #: [id number] THIS REPORT FOR: //name// cc: Elena Meyer Maggie M. DO ~ THIS REPORT FOR: //name// CC: Elena Ko DATE OF SERVICE: 03/22/2020 CHIEF COMPLAINT: "Pain is better." HISTORY: The patient is a 44-year-old gentleman who has been followed in the pain clinic because of chronic low back pain. He has undergone epidural steroid injections in the past. He feels today that his pain is reasonably well controlled. Rates his pain as a 2/10. His pain generally radiates down into his right leg. Weather has changed today. His pain is less problematic. When present, there is a burning sensation down into his left foot. He has been active with his some at shoulders. He does not feel he needs an injection today. He would like to have his medications renewed. ALLERGIES: STATINS. CURRENT MEDICATIONS: Nortriptyline 10 mg at bedtime, lisinopril 10 mg, hydrocodone 5/325 one p.o. every 4-6 hours p.r.n., meloxicam 15 mg daily, tizanidine 4 mg q.i.d. p.r.n. PAIN CLINIC ASSESSMENT AND PQRS: 1. The patient has some osteoarthritic changes in his back. He is not being treated for rheumatoid arthritis. 2. Height 6 feet 0, weight 274 pounds, BMI is 35.3. 3. Blood pressure 108/77, heart rate 94, respiratory rate 16, room air saturation is 97.2. 4. Pain intensity 2/10. 5. Fall history: The patient has not fallen in the last 3 months. 6. Blood thinner. The patient is not on a blood thinning medication. 7. Hypertension. The patient is being treated for hypertension. 8. Opioids greater than 6 weeks. The patient receives medication from the pain clinic. 9. Risk assessment tool, low for opioid use. 10. Functional assessment tool. 11. Recreational drug use. The patient denies. 12. Tobacco: The patient denies. 13. Alcohol. The patient [place] [address] PAIN MANAGEMENT CONSULTATION Name: HILARIO PRAKASH Room: [facility]#: [id number] Admission: 03/22/20 Attend Phys: Robyn Ko MD Discharge: Date of : 71 Report #: [id number] PHYSICAL EXAMINATION: GENERAL: The patient is a well-developed, well-nourished white male. Appears his stated age. He is alert and oriented x 3. His affect is appropriate. Speech is fluent. HEENT: Normocephalic, atraumatic. Extraocular eye muscles intact. Sclerae nonicteric. Mucous membranes moist. NECK: Without adenopathy or JVD. LUNGS: Clear to auscultation. ABDOMEN: Nontender. EXTREMITIES: Upper extremity muscle strength judged to be 5/5 for the major muscle groups in the upper extremity. The patient has some pain and discomfort and it is in the L5-S1 dermatomal distribution on the left side. IMPRESSION: 1. History of lumbar radiculopathy involving the right L5-S1 area. 2. MRI of the back with findings of a 9.9 x 7.5 x 9.4 cm CSF signal in the posterior fossa. 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 3. Cervical spondylosis at C6-C7 with moderate central canal stenosis and left neural foraminal narrowing secondary to eccentric disk bulge. 4. Cyst consistent with narrowing to 8 mm and development of a moderate spinal stenosis. 5. Hypertension. RECOMMENDATIONS: We discussed treatment options with the patient. At this juncture, he feels his medications are working reasonably well. He has been able to do activities he would like to have done. He is doing chores around his house. At this point, he feels that the pain in his leg is reasonably controlled. He would like to continue with a conservative approach. Scripts for his medications has been renewed. The patient will continue with hydrocodone 5 mg 1 p.o. q. 4 to 6 hours p.r.n. pain. He will also continue with his nonsteroidal anti-inflammatory medication, meloxicam. He will continue with tizanidine for muscle spasms. We would like to thank you for letting us participate in his care. He will call us if he has any concerns. <ELECTRONICALLY SIGNED> By: Robyn Ko MD 03/23/20 1554 [id number] [id number]. Yadiel Ko MD /SABRA
== END ==
LOC: M.PC 03:56
DX: M81.0 Age-related osteoporosis without current pathological fracture (principal); M47.812 Spondylosis without myelopathy or radiculopathy, cervical region; M54.17 Radiculopathy, lumbosacral region; I10 Essential (primary) hypertension; Z79.891 Long term (current) use of opiate analgesic

== ENCOUNTER → 2020-04-19 | Outpatient (CLI) | payer OTHER | END | disposition home or self-care (01) | LOC: M.PC 02:27 | PROVIDERS: ATTEND Anesthesiology Pain Medicine | DX: M54.16 Radiculopathy, lumbar region (principal); G89.29 Other chronic pain; I10 Essential (primary) hypertension; Z98.890 Other specified postprocedural states; Z79.899 Other long term (current) drug therapy ==

== ENCOUNTER → 2020-05-10 | Outpatient (CLI) | payer OTHER ==
--- NOTE | 2020-05-11 09:02 | PAINCON ---
[address] [address] PAIN MANAGEMENT CONSULTATION Name: HILARIO PRAKASH Room: [facility] Kelsie#: [id number] Admission: 05/10/20 Attend Phys: Robyn Ko MD Discharge: Date of : 71 Report #: [id number] THIS REPORT FOR: //name// cc: Elena Meyer Maggie M. DO ~ THIS REPORT FOR: //name// CC: Elena Ko DATE OF SERVICE: 05/10/2020 CHIEF COMPLAINT: Pain has improved since the last epidural injection. HISTORY: The patient is a 44-year-old gentleman who has been followed in the Pain Clinic. As you may recall, he has lumbar radicular pain. He has undergone epidural steroid injection and found them beneficial. His last injection was successful. He rates his pain today as 1/10. He did have a history of sharp shooting pain. He notes that use of his medications help with pain control . He did have pain that was radiating down into his right leg. He has been staying active. He is sleeping well recently. He feels that he is 100% improved after the injection. Notes that sitting and certain other activities can still be somewhat problematic. He has returned today with the hope of having his medications renewed. ALLERGIES: STATINS. CURRENT MEDICATIONS: Nortriptyline 10 mg at bedtime, lisinopril 10 mg, hydrocodone 5/325 one p.o. every 4-6 hours p.r.n., meloxicam 15 mg daily, and tizanidine 4 mg p.o. q.i.d. PAIN CLINIC ASSESSMENT AND PQRS: 1. The patient has some osteoarthritic changes in his back. He is not being treated for rheumatoid arthritis. 2. Height 6 feet 0 inches, weight 279 pounds, BMI is 38. 3. Vital signs: Blood pressure 111/77, heart rate 77, respiratory rate 16, room air saturation 97%, and temperature 97.6. 4. Pain intensity 10/28. 5. Fall history: The patient has not fallen in the last 3 months. 6. Blood thinner. The patient is not on a blood thinning medication. 7. Hypertension. The patient is being treated for hypertension. 8. Opioids greater than 6 weeks. The patient receives medication from the Pain Clinic. 9. Risk assessment tool, low for opioid use. 10. Functional assessment tool reviewed. 11. Recreational drug [place] [address] PAIN MANAGEMENT CONSULTATION Name: OLINDAHILARIO Huntley Room: [facility]#: [id number] Admission: 05/10/20 Attend Phys: Robyn Ko MD Discharge: Date of : 71 Report #: [id number] 12. Tobacco: The patient denies. 13. Alcohol. The patient denies use of alcoholic beverages. PHYSICAL EXAMINATION: GENERAL: The patient is a well-developed, well-nourished white male. Appears his stated age. He is alert and oriented x 3. His affect is appropriate. Speech is fluent. HEENT: Normocephalic, atraumatic. Extraocular eye muscles intact. Sclerae nonicteric. Mucous membranes are moist. The patient is wearing a mask. NECK: Without adenopathy or JVD. HEART: Regular rate. LUNGS: Clear to auscultation. ABDOMEN: Nontender. EXTREMITIES: Upper extremity muscle strength judged to be 5/5 for the major muscle groups in the upper extremity. The patient has some discomfort in the back area in the L5-S1 dermatomal distribution, which has improved since the last injection with less radiation down into his right leg. IMPRESSION: 1. Lumbar radiculopathy involving the right L5-S1 area. 2. MRI of the back with findings of a 9.9 x 7.5 x 9.4 cm CSF signal in the posterior fossa. 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 3. Cervical spondylosis at C6-C7 with moderate central canal stenosis and left neural foraminal narrowing secondary to eccentric bulging disk. 4. Cyst consistent with narrowing to 8 mm and development of a moderate spinal stenosis. 5. Hypertension. RECOMMENDATIONS: We discussed treatment options with the patient. At this juncture, we will continue with his medications of hydrocodone. He will also use meloxicam. He will note the effect of the meloxicam on his GI tract. Should he note some pain or discomfort, he will stop taking his medication. He will also continue with the muscle relaxant, tizanidine 4 mg q.i.d. He will use nortriptyline 20 mg at bedtime. He will call us if he has any concerns about his medications. We would like to thank you for letting us participate in his care. We hope he continues to improve. <ELECTRONICALLY SIGNED> By: Robyn Ko MD 05/11/20 0902 1005 1907N. Yadiel Ko MD /nt
== END ==
LOC: M.PC 04:24
PROVIDERS: ATTEND Anesthesiology Pain Medicine
DX: M54.16 Radiculopathy, lumbar region (principal); M47.812 Spondylosis without myelopathy or radiculopathy, cervical region; M48.02 Spinal stenosis, cervical region; I10 Essential (primary) hypertension

== ENCOUNTER → 2020-06-12 | Outpatient (CLI) | payer OTHER ==
--- NOTE | ~2020-06-12 | PAINCON ---
[address] [address] PAIN MANAGEMENT CONSULTATION Name: HILARIO PRAKASH [facility] [id number] Admission: 06/12/20 Attend Phys: Robyn Ko MD Discharge: Date of : 71 Report #: [id number] THIS REPORT FOR: //name// cc: Elena Meyer Maggie M. DO ~ THIS REPORT FOR: //name// CC: Elena Ko DATE OF SERVICE: 06/12/2020 CHIEF COMPLAINT: The pain is not too bad today. HISTORY: The patient is a 45-year-old gentleman who has been followed in the pain clinic because of chronic pain. He has been afflicted with lumbar radiculopathy. He has undergone epidural steroid injections in the past. Overall, he feels that his pain is about 2-3 today. He states that is a relatively good pain level. He has not had any complications from the procedure. He feels his medications are helpful. He is not having any problems with thinking clearly or performing his job. He would like to continue with his medication. He has returned today for renewal of the medication. He is somewhat concerned about the COVID-19 pandemic. The number of cases in the area have increased. He has no school children. ALLERGIES: STATINS. CURRENT MEDICATIONS: Nortriptyline 10 mg at bedtime, lisinopril 10 mg, hydrocodone 5/325 one p.o. every 4-6 hours p.r.n., meloxicam 15 mg daily, tizanidine 4 mg p.o. q.i.d. PAIN CLINIC ASSESSMENT AND PQRS: 1. The patient has some osteoarthritic changes in his back. He is not being treated for rheumatoid arthritis. 2. Height 6 feet, weight 284 pounds, BMI is 38.3. 3. Vital Signs: Blood pressure 116/91, heart rate 89, respiratory rate 16, room air saturation 97%, temperature 97.1. 4. Pain intensity 2-310. 5. Fall history: The patient has not fallen in the last 3 months. 6. Blood thinner. The patient is not on a blood thinning medication. 7. Hypertension. The patient is being treated for hypertension. 8. Opioids greater than 6 weeks. The patient receives medication from the pain clinic. 9. Risk assessment tool, low for opioid use. 10. Functional assessment tool reviewed. 11. Recreational [place] [address] PAIN MANAGEMENT CONSULTATION Name: HILARIO PRAKASH Room: [facility]#: [id number] Admission: 06/12/20 Attend Phys: Robyn Ko MD Discharge: Date of : 71 Report #: [id number] 12. Tobacco: The patient denies. 13. Alcohol: The patient denies use of alcoholic beverages. PHYSICAL EXAMINATION: GENERAL: The patient is a well-developed, well-nourished white male. Appears his stated age. He is alert and oriented x 3. His affect is appropriate. Speech is fluent. HEENT: Normocephalic, atraumatic. Extraocular eye muscles intact. Sclerae nonicteric. Mucous membranes are moist. The patient is wearing a mask. NECK: Without adenopathy or JVD. HEART: Regular rate. LUNGS: Clear to auscultation. ABDOMEN: Nontender. EXTREMITIES: Upper extremity muscle strength judged to be 5/5 for the major muscle groups in the upper extremity. The patient has some pain and discomfort in the lower portion of his back. This is involving the L5-S1 dermatomal distribution. IMPRESSION: 1. History of lumbar radiculopathy, right L5-S1 area. 2. MRI of the back with findings of a 9.9 x 7.5 x 9.4 cm CSF signal in the posterior fossa. 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 3. Cervical spondylosis at C6-C7 with moderate central canal stenosis and left neural foraminal narrowing secondary to eccentric bulging disk. 4. Cyst consistent with narrowing to 8 mm and development of a moderate spinal stenosis. 5. Hypertension. RECOMMENDATIONS: We discussed treatment options with the patient. At this juncture, he feels his medications are helpful. He would like to continue with the medications. He is able to think clearly. He continues to work. He is concerned about the increasing numbers of patients with COVID-19. He is sheltering at home as much as possible. He is not having any problems with the meloxicam. He is aware that this medication can cause some GI upset. He feels that the muscle relaxant, tizanidine is helpful. He continues with hydrocodone 4-5 times daily when needed. A script for his medications has been rewritten. He will call us if he has any concerns. We would like to thank you for letting us participate in his care. We hope he continues to improve. He will call us if he has any concerns. By: [id number]. Yadiel Ko MD /PMT
== END ==
LOC: M.PC 08:30
PROVIDERS: ATTEND Anesthesiology Pain Medicine
DX: M47.812 Spondylosis without myelopathy or radiculopathy, cervical region (principal); M48.02 Spinal stenosis, cervical region; M50.223 Other cervical disc displacement at C6-C7 level; G89.29 Other chronic pain; M87.2 Osteonecrosis due to previous trauma; I10 Essential (primary) hypertension; Z88.8 Allergy status to other drugs, medicaments and biological substances; Z79.899 Other long term (current) drug therapy

== ENCOUNTER → 2020-07-10 | Outpatient (CLI) | payer OTHER ==
--- NOTE | 2020-07-12 08:38 | PAINCON ---
[address] [address] PAIN MANAGEMENT CONSULTATION Name: HILARIO PRAKASH Room: [facility] AIYANA Iglesias#: [id number] Admission: 07/10/20 Attend Phys: Robyn Ko MD Discharge: Date of : 71 Report #: [id number] THIS REPORT FOR: //name// cc: Elena Meyer Maggie M. DO ~ THIS REPORT FOR: //name// CC: Elena Ko DATE OF SERVICE: 07/10/2020 CHIEF COMPLAINT: "My pain medicine is not lasting as long. I think I may have to get an injection in the future." HISTORY: The patient is a 45-year-old gentleman who has been followed in the Pain Clinic because of chronic pain. As you recall, he suffers from lumbar radiculopathy. He has undergone epidural steroid injections, which have been beneficial. He reports that he is having pain in the lower portion of his back. It is radiating down to the right leg. He rates his pain as a 3/10. He feels that the hydrocodone is helpful. He is able to think clearly with its use. He also has continued to use meloxicam and tizanidine for muscle spasms. Notes that the pain is worse with certain activities. Sitting can exacerbate his discomfort. Use of medications and rest are beneficial as well. We would like to proceed with another epidural steroid injection in the future. Today, he would like to have his medications renewed. ALLERGIES: STATINS. CURRENT MEDICATIONS: Nortriptyline 10 mg at bedtime, lisinopril 10 mg, hydrocodone 5/325 one every 4-6 hours, meloxicam 15 mg daily, and tizanidine 4 mg q.i.d. PAIN CLINIC ASSESSMENT AND PQRS: 1. The patient has some osteoarthritic changes in his back. He is not being treated for rheumatoid arthritis. 2. Height 6 feet, weight 282 pounds, BMI is 38.2. 3. Vital signs: Blood pressure 135/87, heart rate 79, respiratory rate 16, room air saturation 97%, and temperature 97.8. 4. Pain intensity 3/10. 5. Fall history: The patient has not fallen in the last 3 months. 6. Blood thinner. The patient is not on a blood thinning medication. 7. Hypertension. The patient is being treated for hypertension. 8. Opioids greater than 6 weeks. The patient received medication [place] [address] PAIN MANAGEMENT CONSULTATION Name: HILARIO PRAKASH Room: [facility]#: [id number] Admission: 07/10/20 Attend Phys: Robyn Ko MD Discharge: Date of : 71 Report #: [id number] 9. Risk assessment tool, low for opioid use. 10. Functional assessment tool reviewed. 11. Recreational drug use. The patient denies. 12. Tobacco: The patient denies. 13. Alcohol. The patient denies use of alcoholic beverages. PHYSICAL EXAMINATION: GENERAL: The patient is a well-developed, well-nourished white male. Appears his stated age. He is alert and oriented x 3. His affect is appropriate. Speech is fluent. HEENT: Normocephalic, atraumatic. Extraocular eye muscles intact. Sclerae nonicteric. Mucous membranes are moist. The patient is wearing a facial covering. NECK: Without adenopathy or JVD. HEART: Regular rate. LUNGS: Clear to auscultation. ABDOMEN: Nontender. EXTREMITIES: Upper extremity muscle strength judged to be 5/5 for the major muscle groups in the upper extremity. The patient has some pain and discomfort in the right low back area with pain that is beginning to radiate down into the L5-S1 area of his right leg. IMPRESSION: 1. History of lumbar radiculopathy in the right L5-S1 area. 2. MRI of the back with findings of a 9.9 x 7.5 x 9.4 cm CSF signal in the posterior fossa. 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 3. Cervical spondylosis at C6-C7 with moderate central canal stenosis and left neural foraminal narrowing secondary to eccentric bulging disk. 4. Cyst consistent with narrowing to 8 mm and development of moderate spinal stenosis. 5. Hypertension. RECOMMENDATIONS: We discussed treatment options with the patient. At this juncture, we will continue with his hydrocodone medication. We will increase his dose from 80 tablets per month to 90 tablets. Hopefully, the additional 10 tablets will help him on those days when his pain is more problematic. He feels that his pain has increased. He is considering the possibility of an epidural steroid injection in the future. He has not had a Medrol Dosepak in a while. We will provide a Medrol Dosepak and hopefully this will help to curtail the pain and discomfort he is beginning to notice. We will have the patient return to the Pain Clinic as needed. He will call us [place] [address] PAIN MANAGEMENT CONSULTATION Name: HILARIO PRAKASH Room: [facility]#: [id number] Admission: 07/10/20 Attend Phys: Robyn Ko MD Discharge: Date of : 71 Report #: [id number] We would like to thank you for letting us participate in his care. He is able to think clearly with his medications. <ELECTRONICALLY SIGNED> By: Robyn Ko MD 07/12/20 [id number] 21N. Yadiel Ko MD /nt
== END ==
LOC: M.PC 07:56
PROVIDERS: ATTEND Anesthesiology Pain Medicine
DX: M47.812 Spondylosis without myelopathy or radiculopathy, cervical region (principal); G89.29 Other chronic pain; I10 Essential (primary) hypertension; Z87.39 Personal history of other diseases of the musculoskeletal system and connective tissue; Z88.8 Allergy status to other drugs, medicaments and biological substances; Z79.899 Other long term (current) drug therapy

== ENCOUNTER → 2020-08-07 | Outpatient (CLI) | payer OTHER ==
--- NOTE | ~2020-08-07 | PAINCON ---
[address] [address] PAIN MANAGEMENT CONSULTATION Name: HILARIO PRAKASH Room: [facility] Kelsie#: [id number] Admission: 08/07/20 Attend Phys: Robyn Ko MD Discharge: Date of : 71 Report #: [id number] THIS REPORT FOR: //name// cc: Elena Meyer Maggie M. DO ~ THIS REPORT FOR: //name// CC: Elena Ko DATE OF SERVICE: 08/07/2020 CHIEF COMPLAINT: Low back pain down into the leg with numbness, burning. HISTORY: The patient is a 45-year-old gentleman who has been followed in the pain clinic. As you recall, he suffers from lumbar radiculopathy. He has undergone epidural steroid injections and found them to be helpful. After the last injection, he was given a Medrol Dosepak. He had less discomfort and less burning pain afterwards. He has returned today. He rates his pain as a 2/10. He does note some increase in pain with certain activities. He still has pain that radiates down his back along the right side. There is a numbness and a burning sensation accompanying it. He would like to proceed with another epidural steroid injection given that he has gleaned benefit from those in the past. He has had no complications. He notes that certain activities such as bending and twisting can increase his discomfort. ALLERGIES: STATINS. CURRENT MEDICATIONS: Nortriptyline 10 mg at bedtime, lisinopril 10 mg, hydrocodone 5/325 one p.o. every 4-6 hours, meloxicam 15 mg daily, and tizanidine 4 mg q. 4 hours p.r.n. PAIN CLINIC ASSESSMENT AND PQRS: 1. The patient has some osteoarthritic changes in his back. He is not being treated for rheumatoid arthritis. 2. Height 6 feet 0, weight 278 pounds, BMI is 37.9. 3. Vital Signs: Blood pressure 127/79, heart rate is 92, respiratory rate 16, room air saturation 97%. 4. Pain intensity 9/7.6. 5. Pain score 2/10. 6. Fall history: The patient has not fallen since we saw him last. 7. Blood thinner. The patient is not on a blood thinning medication. 8. Hypertension. The patient is being treated for hypertension. 9. Opioids greater than 6 weeks. The patient receives medication from the pain clinic. 10. Risk assessment tool, [place] [address] PAIN MANAGEMENT CONSULTATION Name: OLINDAHILARIO Audi Room: [facility]#: [id number] Admission: 08/07/20 Attend Phys: Robyn Ko MD Discharge: Date of : 71 Report #: [id number] 11. Functional assessment tool reviewed. 12. Recreational drug use. The patient denies. 13. Tobacco: The patient denies. 14. Alcohol. The patient denies use of alcoholic beverages. PHYSICAL EXAMINATION: GENERAL: The patient is a well-developed, well-nourished white male. Appears his stated age. He is alert and oriented x 3. His affect is appropriate. Speech is fluent. The patient is wearing a facial covering. NECK: Without adenopathy or JVD. HEART: Regular rate. LUNGS: Clear to auscultation. ABDOMEN: Nontender. EXTREMITIES: Upper extremity muscle strength judged to be 5/5 for the major muscle groups in the upper extremity. The patient has pain and discomfort in the right low back area with pain that radiates down into the L5-S1 area of his right leg. IMPRESSION: 1. History of lumbar radiculopathy in the right L5-S1 area. 2. MRI of the neck with findings of 9.9 x 7.5 x 9.4 cm CSF signal in the posterior fossa. 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 3. Cervical spondylosis at C6-C7 with moderate central canal stenosis and left neural foraminal narrowing secondary to eccentric bulging disk. 4. Cyst consistent with narrowing to 8 mm and development of moderate spinal stenosis. 5. Hypertension. RECOMMENDATIONS: We discussed treatment options with the patient. At this juncture, the patient feels that his medications are helpful. He is having pain that is radiating down to the right leg. He felt that the last Medrol Dosepak was efficacious and help with some of the burning pain and discomfort he had been experiencing. He feels today that he would like to proceed with another epidural steroid injection to help with his pain. Risks and benefits of the procedure were discussed. They include but are not limited to infection, worsening pain, no improvement in pain, nerve damage, bleeding, and spinal headache. The patient is also aware that COVID-19 pandemic proportions. We discussed that the steroid medications can decrease one's immune response. Should the patient became infected, he may have more problems with the virus. He elects to proceed. PROCEDURE NOTE: The patient was taken to the procedure area. He was then assisted in getting on the examination table. His back was sterilely prepped with a Betadine solution. A 0.25% bupivacaine was infiltrated at the L5-S1 area. This area was anesthetized with 0.25% bupivacaine using a 25-gauge [facility] [address] [place] [address] PAIN MANAGEMENT CONSULTATION Name: HILARIO PRAKASH Room: [facility]#: [id number] Admission: 08/07/20 Attend Phys: Robyn Ko MD Discharge: Date of : 71 Report #: [id number] needle. Fluoroscopy was used to identify the appropriate placement. A 25-gauge needle was then advanced into the L5-S1 area. There was no CSF, heme or paresthesia. Total of 80 mg Depo-Medrol, 40 mg triamcinolone and 2 mL of 0.25% bupivacaine was injected. The patient tolerated the procedure well. There were no complications. He remained in the pain clinic for an appropriate amount of time. A script for his medications were provided with hydrocodone, meloxicam and tizanidine rewritten. We would like to thank you for letting us participate in his care. We hope he continues to improve. By: [id number]. Yadiel Ko MD /nt
== END | disposition home or self-care (01) ==
LOC: M.PC 08:28
PROVIDERS: ATTEND Anesthesiology Pain Medicine
DX: M54.5 Low back pain (principal); M48.061 Spinal stenosis, lumbar region without neurogenic claudication; M47.812 Spondylosis without myelopathy or radiculopathy, cervical region; M48.02 Spinal stenosis, cervical region; I10 Essential (primary) hypertension; Z79.899 Other long term (current) drug therapy; Z88.8 Allergy status to other drugs, medicaments and biological substances

== ENCOUNTER → 2020-09-04 | Outpatient (CLI) | payer OTHER ==
--- NOTE | 2020-09-20 14:42 | PAINCON ---
[address] [address] PAIN MANAGEMENT CONSULTATION Name: HILARIO PRAKASH Room: [facility] AIYANA Iglesias#: [id number] Admission: 09/04/20 Attend Phys: Robyn Ko MD Discharge: Date of : 71 Report #: [id number] THIS REPORT FOR: //name// cc: Elena Meyer Maggie M. DO ~ CC: Elena Duncan DATE OF SERVICE: 09/04/2020 CHIEF COMPLAINT: Here for medications. The injection was helpful. HISTORY: The patient is a 45-year-old gentleman who has been followed in the pain clinic because of lumbar radiculopathy. He returned today with need for his medications to be renewed. He was at work. One of his coworkers "picked him up from behind." This was about 2 weeks ago. After that, he noticed worsening of pain and discomfort. Overall, he has been having pain that has been problematic on and off. At this point, he feels like it is getting better. Notes that sitting and activities can exacerbate his discomfort. His medications are beneficial. He is greater than 50% improved at this juncture. He would like to have his medications renewed. He feels that the hydrocodone medication is helpful. He is able to think clearly. Does not impeding his work. He also finds that tizanidine has a muscle relaxant and is helpful. He is not having any problems with the meloxicam. We will continue with his medications. He would like to have them renewed. ALLERGIES: STATINS. CURRENT MEDICATIONS: Nortriptyline 10 mg at bedtime, lisinopril 10 mg, hydrocodone 5/325 one q. 4-6 hours, meloxicam 15 mg, tizanidine 4 mg q. 4 hours p.r.n. PAIN CLINIC ASSESSMENT AND PQRS: 1. The patient has some osteoarthritic changes in his back. He is not being treated for rheumatoid arthritis. 2. Height 6 feet 0, weight 281 pounds. 3. Vital signs: Blood pressure is 143/82, heart rate 90, respiratory rate 16, room air saturation 97%, temperature 96.1. 4. Pain intensity 12/26. 5. Fall history: The patient has not fallen in the last 3 months. 6. Blood thinner. The patient is not on a blood thinning medication. 7. Hypertension. The patient is being treated for hypertension. 8. Opioids greater than 6 weeks. The patient received medication from the pain clinic. 9. Risk assessment tool, [place] [address] PAIN MANAGEMENT CONSULTATION Name: HILARIO PRAKASH [id number] Admission: 09/04/20 Attend Phys: Robyn Ko MD Discharge: Date of : 71 Report #: [id number] 10. Functional assessment tool reviewed. 11. Recreational drug use: The patient denies. 12. Tobacco: The patient denies. 13. Alcohol: The patient rarely uses alcoholic beverages. PHYSICAL EXAMINATION: GENERAL: The patient is a well-developed, well-nourished white male. Appears his stated age. He is alert and oriented x 3. His affect is appropriate. Speech is fluent. The patient has facial covering in place. NECK: Without adenopathy. HEART: Regular rate. LUNGS: Clear. ABDOMEN: Nontender. EXTREMITIES: Upper extremity muscle strength judged to be 5/5 for the major muscle groups in the upper extremity. The patient has some pain and discomfort in the lower portion of his back that radiates down the L5-S1 area involving his leg. IMPRESSION: 1. History of lumbar radiculopathy in the right L5-S1 area. 2. MRI of the neck with findings of 9.9 x 7.5 x 9.4 cm CSF signal in the posterior fossa. 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 3. Cervical spondylosis at C6-C7 with moderate central canal stenosis and left neural foraminal narrowing secondary to eccentric bulging disk. 4. Cyst consistent with narrowing to 8 mm and development of a moderate spinal stenosis. 5. Hypertension. RECOMMENDATIONS: We discussed treatment options with the patient. At this juncture, we will continue with his medications. A script for his medication of hydrocodone has been provided. He will continue with hydrocodone 5 mg 1 p.o. t.i.d. as needed. He is able to think clearly with his medication. He is aware that opioid medications can become less effective as time goes on because of development of tolerance. He has not shown any signs of addiction. The patient will also continue with meloxicam. He will monitor his GI findings. He did start noticing some stomach problems, he will stop the meloxicam. He will continue with tizanidine 4 mg p.o. q. 4 hours for muscle spasms. We would like to thank you for letting us participate in his care. We hope he continues to improve. A script for his medications including a Medrol Dosepak were provided. <ELECTRONICALLY SIGNED> By: Robyn Ko MD 09/20/20 [id number] 2031N. MD FILOMENA Heard
== END ==
LOC: M.PC 08:16
PROVIDERS: ATTEND Anesthesiology Pain Medicine
DX: M54.16 Radiculopathy, lumbar region (principal); I10 Essential (primary) hypertension; Z79.899 Other long term (current) drug therapy

== ENCOUNTER → 2020-10-02 | Outpatient (CLI) | payer OTHER | END | disposition home or self-care (01) | LOC: M.PC 08:19 | PROVIDERS: ATTEND Anesthesiology Pain Medicine | DX: M54.16 Radiculopathy, lumbar region (principal); M79.604 Pain in right leg; I10 Essential (primary) hypertension; E78.5 Hyperlipidemia, unspecified; Z98.890 Other specified postprocedural states; Z79.899 Other long term (current) drug therapy; Z88.8 Allergy status to other drugs, medicaments and biological substances ==

== ENCOUNTER → 2020-10-30 | Outpatient (CLI) | payer OTHER | LOC: M.PC 08:20 | PROVIDERS: ATTEND Anesthesiology Pain Medicine | DX: M50.30 Other cervical disc degeneration, unspecified cervical region (principal); M48.02 Spinal stenosis, cervical region; I10 Essential (primary) hypertension; M47.812 Spondylosis without myelopathy or radiculopathy, cervical region; Z88.8 Allergy status to other drugs, medicaments and biological substances; Z79.899 Other long term (current) drug therapy ==

== ENCOUNTER 2020-11-27 12:29 | Emergency (ER) | payer OTHER ==
[2020-11-27 12:38] VITALS: BP 00/00
[2020-11-27] MEDS ORDERED: ZOFRAN ODT4 MG PO (15:42)
[2020-11-27] MEDS ORDERED: FLOMAX0.4 MG PO (15:42)
== END 2020-11-27 12:40 | disposition left against medical advice (07) ==
LOC: M.ERS 12:29
DX: Z53.21 Procedure and treatment not carried out due to patient leaving prior to being seen by health care provider (principal)

== ENCOUNTER 2020-11-27 14:08 | Emergency (ER) | payer OTHER ==
[~2020-11-27] VITALS: Ht 182.9 cm; Wt 127.0 kg
[2020-11-27 14:52] LABS: CALCIUM 9.1 mg/dL (8.5-10.1); CREATININE 1.7 mg/dL (0.6-1.3); POTASSIUM 4.3 mmol/L (3.5-5.1)
[2020-11-27 14:56] LABS: ALBUMIN 3.7 g/dL (3.4-5.0); TOTAL BILIRUBIN 0.5 mg/dL (<0.1-1.0); TOTAL PROTEIN 6.7 g/dL (6.4-8.2)
[2020-11-27 15:11] LABS: HEMATOCRIT 39.6 % (42.0-52.0); HEMOGLOBIN 13.3 gm/dL (14.0-18.0); MCH 27.3 pg (26.0-34.0); MCHC 33.7 g/dL (28.0-37.0); MCV 81.1 fL (80.0-100.0); MPV 7.5 fl. (7.2-11.1); NUCLEATED RBCS 0 /100WBC; PLATELET COUNT* 201 thou/uL (150-400); RBC 4.88 mil/uL (4.50-6.00); RDW-CV 14.9 % (10.5-14.5); WBC 10.6 thou/uL (4.0-11.0)
[2020-11-27 15:39] LABS: ABSOLUTE LYMPHOCYTES 0.3 thou/uL (0.8-5.3); ABSOLUTE MONOCYTES 0.3 thou/uL (0.0-1.2)
[2020-11-27 15:40] LABS: PLATELET ESTIMATE ADEQUATE; TOXIC GRANULATION Occasional
[2020-11-27] MEDS ORDERED: FLOMAX0.4 MG PO (15:42)
[2020-11-27] MEDS ORDERED: ZOFRAN ODT4 MG PO (15:42)
[2020-11-27 16:28] VITALS: BP 128/85
== END 2020-11-27 16:29 | disposition home or self-care (01) ==
LOC: M.ERS 14:08
PROVIDERS: Nurse Practitioner Family
DX: N20.1 Calculus of ureter (principal); E78.5 Hyperlipidemia, unspecified; I10 Essential (primary) hypertension; Z87.442 Personal history of urinary calculi; Z90.49 Acquired absence of other specified parts of digestive tract; Z88.8 Allergy status to other drugs, medicaments and biological substances

== ENCOUNTER → 2020-12-25 | Outpatient (CLI) | payer OTHER ==
[~2020-12-25] MED LIST changes: +FLOMAX0.4 MG PO; +METFORMIN HCL500 M3 PO; +ZOFRAN ODT4 MG PO
== END ==
LOC: M.PC 11-27 08:20
PROVIDERS: ATTEND Anesthesiology Pain Medicine
DX: M47.812 Spondylosis without myelopathy or radiculopathy, cervical region (principal); M50.30 Other cervical disc degeneration, unspecified cervical region; E11.9 Type 2 diabetes mellitus without complications; I10 Essential (primary) hypertension; Z87.39 Personal history of other diseases of the musculoskeletal system and connective tissue; Z88.8 Allergy status to other drugs, medicaments and biological substances; Z79.899 Other long term (current) drug therapy

== ENCOUNTER → 2021-02-19 | Outpatient (CLI) | payer OTHER | END | disposition home or self-care (01) | LOC: M.PC 08:19 | PROVIDERS: ATTEND Anesthesiology Pain Medicine | DX: M54.16 Radiculopathy, lumbar region (principal); G89.29 Other chronic pain; I10 Essential (primary) hypertension; E11.9 Type 2 diabetes mellitus without complications; E78.5 Hyperlipidemia, unspecified; Z98.890 Other specified postprocedural states; Z79.899 Other long term (current) drug therapy; Z90.49 Acquired absence of other specified parts of digestive tract; Z87.442 Personal history of urinary calculi; Z88.8 Allergy status to other drugs, medicaments and biological substances ==

== ENCOUNTER → 2021-04-16 | Outpatient (CLI) | payer OTHER ==
[~2021-04-16] MED LIST changes: +TRULICITY1.5 MG/0.5 SUBQ
== END ==
LOC: M.PC 08:10
PROVIDERS: ATTEND Anesthesiology Pain Medicine
DX: M47.22 Other spondylosis with radiculopathy, cervical region (principal); M48.07 Spinal stenosis, lumbosacral region; M50.10 Cervical disc disorder with radiculopathy, unspecified cervical region; M48.02 Spinal stenosis, cervical region; I10 Essential (primary) hypertension; E11.9 Type 2 diabetes mellitus without complications; Z79.891 Long term (current) use of opiate analgesic; Z79.899 Other long term (current) drug therapy

== ENCOUNTER → 2021-06-06 | Outpatient (CLI) | payer OTHER | LOC: M.PC 07:56 | PROVIDERS: ATTEND Anesthesiology Pain Medicine | DX: M54.17 Radiculopathy, lumbosacral region (principal); M47.812 Spondylosis without myelopathy or radiculopathy, cervical region; M48.02 Spinal stenosis, cervical region; E11.9 Type 2 diabetes mellitus without complications ==

== ENCOUNTER → 2021-08-01 | Outpatient (CLI) | payer BC | LOC: M.PC 07:27 | PROVIDERS: ATTEND Anesthesiology Pain Medicine | DX: M47.22 Other spondylosis with radiculopathy, cervical region (principal); M48.07 Spinal stenosis, lumbosacral region; M79.604 Pain in right leg; I10 Essential (primary) hypertension; E11.9 Type 2 diabetes mellitus without complications; Z79.899 Other long term (current) drug therapy ==

== ENCOUNTER → 2021-09-26 | Outpatient (CLI) | payer BC | LOC: M.PC 08:15 | PROVIDERS: ATTEND Anesthesiology Pain Medicine | DX: M50.123 Cervical disc disorder at C6-C7 level with radiculopathy (principal); M48.02 Spinal stenosis, cervical region; I10 Essential (primary) hypertension; E11.9 Type 2 diabetes mellitus without complications; Z79.84 Long term (current) use of oral hypoglycemic drugs; Z79.899 Other long term (current) drug therapy; Z88.8 Allergy status to other drugs, medicaments and biological substances ==

== ENCOUNTER → 2021-11-21 | Outpatient (CLI) | payer BC ==
[~2021-11-21] MED LIST changes: +HYDROCODONE-AP1 EA11 PO; +NEURONTIN300 MG PO; +NORVASC 2.5 MG2.5 M1 PO
== END ==
LOC: M.PC 08:06
PROVIDERS: ATTEND Anesthesiology Pain Medicine
DX: M54.16 Radiculopathy, lumbar region (principal); M47.812 Spondylosis without myelopathy or radiculopathy, cervical region; I10 Essential (primary) hypertension; E78.5 Hyperlipidemia, unspecified; Z88.8 Allergy status to other drugs, medicaments and biological substances; Z79.899 Other long term (current) drug therapy; Z79.84 Long term (current) use of oral hypoglycemic drugs